=== PATIENT | male | born 1995 | race Caucasian/White ===

== ENCOUNTER 2017-12-15 20:53 | Emergency (ER) | payer MEDICAID ==
[~2017-12-15] VITALS: Ht 170.2 cm; Wt 81.8 kg
[2017-12-15 21:12] VITALS: Ht 170.2 cm; Wt 81.8 kg
[2017-12-15] MEDS ORDERED: HUMULIN 70100 UNIT/1 (21:13)
[2017-12-15] MEDS ORDERED: AUGMENTIN 875-11 TAB PO (22:03)
[2017-12-15 22:13] VITALS: BP 132/78
[2018-01-06 15:48] VITALS: Ht 170.2 cm; Wt 81.8 kg
== END 2017-12-15 22:14 | disposition home or self-care (01) ==
LOC: D.ER 20:53
DX: H66.92 Otitis media, unspecified, left ear (principal)

== ENCOUNTER 2018-01-05 16:23 | Observation (INO) | payer OTHER ==
[~2018-01-05] VITALS: Ht 170.2 cm; Wt 81.6 kg
[~2018-01-05 16:23] MED LIST: AUGMENTIN 875-11 TAB PO; HUMULIN 70100 UNIT/1
[2018-01-05] MEDS ORDERED: HUMULIN 70100 UNIT/1 SC (16:28)
[2018-01-05 16:56] LABS: BASOPHILS 0.2 % (0-2); EOSINOPHILS 0.2 % (0-7); HEMATOCRIT 46.4 % (42.0-54.0); HEMOGLOBIN 17.2 g/dL (13.5-17.5); IMMATURE GRANULOCYTES 0.2 % (0-5); LYMPHOCYTES 29.7 % (15-50); MCHC 37.1 g/dL (31.0-37.0); MCV 86.4 fL (80.0-100.0); MEAN PLATELET VOLUME 9.3 fL (7.4-10.4); MONOCYTES 5.9 % (2-11); NEUTROPHILS 63.8 % (40-80); PLATELET COUNT 273 10x3/uL (130-400); RBC 5.37 10x6/uL (4.20-6.10); RDW 13.1 % (11.5-14.5); WBC 8.5 10x3/uL (4.8-10.8)
[2018-01-05 17:16] LABS: KETONE - SERUM LARGE mg/dL (NEGATIVE)
[2018-01-05 17:17] LABS: ALBUMIN 4.4 g/dL (3.4-5.0); ALKALINE PHOSPHATASE 76 U/L (46-116); ALT (SGPT) 26 U/L (10-68); BILIRUBIN - TOTAL 0.82 mg/dL (0.2-1.3); CALC OSMOLALITY 279 mosm/kg (275-300); CHLORIDE - SERUM 96 mmol/L (98-107); CREATININE - SERUM 0.9 mg/dL (0.6-1.3); GLUCOSE 351 mg/dL (74-106); PROTEIN - SERUM 8.6 g/dL (6.4-8.2); SODIUM 132 mmol/L (136-145); UREA NITROGEN 16 mg/dL (7-18); eGFR NON AFRICAN AMERICAN > 90 mL/min (90-120)
[2018-01-05 17:23] LABS: APTT 27.6 SECONDS (22.8-39.4); CREATINE KINASE 125 UL (21-232); INR 1.09 (0.85-1.17); MAGNESIUM - SERUM 1.8 mg/dL (1.8-2.4); PROTIME 13.7 SECONDS (11.6-15.0)
[2018-01-05 17:24] LABS: TROPONIN-I < 0.017 ng/mL (0.000-0.060)
[2018-01-05 18:00] VITALS: BP 140/79
[2018-01-05 19:00] VITALS: BP 143/75
[2018-01-05 19:49] LABS: APPEARANCE - CSF PINK; RBC - CSF 4440 cmm (0-0)
[2018-01-05 19:53] LABS: GLUCOSE - CSF 202 MG/DL (40-75); PROTEIN - CSF 54 MG/DL (12-60)
[2018-01-05 21:18] VITALS: BP 140/77
[2018-01-06 02:17] VITALS: BP 114/53; BMI 28.2
[2018-01-06 06:50] VITALS: BP 116/56
[2018-01-06 13:57] VITALS: BP 133/60
[2018-01-06 15:48] VITALS: Ht 170.2 cm; Wt 81.6 kg
[2018-01-06 17:07] LABS: UDS - AMPHET NEGATIVE QUAL (NEGATIVE); UDS - BARB NEGATIVE QUAL (NEGATIVE); UDS - BENZO NEGATIVE QUAL (NEGATIVE); UDS - COCAINE NEGATIVE QUAL (NEGATIVE); UDS - OPIATE NEGATIVE QUAL (NEGATIVE); UDS - PCP NEGATIVE QUAL (NEGATIVE); UDS - THC POSITIVE QUAL (NEGATIVE)
[2018-01-06 20:51] VITALS: BP 121/64
[2018-01-07 01:24] VITALS: BP 114/46
[2018-01-07 05:55] VITALS: BP 106/52
[2018-01-07 08:36] VITALS: BP 107/41
[2018-01-07] MEDS ORDERED: NICODERM C1 PATCH .1 TRANSDERM (09:22)
[2018-01-07] MEDS ORDERED: PROTONIX40 MG PO (09:23)
[2018-01-08 08:21] LABS: HEPATITIS C ANTIBODY <0.1 (0.0-0.9)
[2018-01-08 11:21] LABS: FUNGUS STAIN Final report (())
[2018-01-09 12:12] LABS: CRYPTO AG - CSF Negative (Negative)
[2018-01-13 17:13] LABS: HSV 1 DNA (PCR) Negative (Negative); HSV 2 DNA (PCR) Negative (Negative)
[2018-01-14 13:19] LABS: ENTEROVIRUS RT-PCR Negative (Negative)
[2018-01-20 05:15] LABS: VIRAL - RESULT No virus isolated. (())
[2018-02-03 11:20] LABS: FUNGUS MYCOLOGY CULTURE Final report (())
== END 2018-01-07 10:40 ==
LOC: D.ER 16:23 → D.M2 19:39 → OBSVTIME 19:39 → D.EDHOLD 19:39 → D.M2 19:39
PROVIDERS: Family Medicine; General Practice; Internal Medicine Nephrology
DX: R55 Syncope and collapse (principal); F17.203 Nicotine dependence unspecified, with withdrawal; F15.10 Other stimulant abuse, uncomplicated; R51 Headache; Z01.812 Encounter for preprocedural laboratory examination